=== PATIENT | male | born 1970 | race Caucasian/White ===

== ENCOUNTER 2021-03-19 08:17 | Outpatient (REF) | payer OTHER, SELFPAY ==
--- NOTE | ~2021-03-19 | XR_ITS ---
EXAMINATION: XR CHEST CLINICAL INFORMATION: Cough. COMPARISON: Chest radiograph dated 07/30/2017. TECHNIQUE: 2 views of the chest were obtained. FINDINGS: The lungs are clear. The cardiomediastinal silhouette is normal in size. There is no pleural effusion or pneumothorax. No acute osseous abnormality. XR/XR chest 2V IMPRESSION: No acute cardiopulmonary findings.
[2021-03-19 11:31] LABS: MANUAL DIFF FLAG NO
[2021-03-19 11:39] LABS: Basophils Percent Auto 0.3 % (0-2); Eosinophils Absolute Auto 0.3 X10*3/uL (0.0-0.4); Eosinophils Percent Auto 3.1 % (0-4); Hematocrit 47.8 % (42-52); Imm Gran Abs Auto 0.04 X10*3/uL (0.00-0.03); Imm Gran Pct Auto 0.4 % (0.0-0.4); Lymphocytes Absolute Auto 2.2 X10*3/uL (1.2-4.9); Lymphocytes Percent Auto 24.2 % (20-40); Mean Corpuscular HGB Conc 33.5 g/dl (31.0-36.0); Mean Corpuscular Hemoglobin 29.4 pg (27.0-33.0); Mean Corpuscular Volume 87.9 fL (80-98); Mean Platelet Volume 10.4 fL (9.4-12.4); Monocytes Absolute Auto 0.8 X10*3/uL (0.1-1.2); Monocytes Percent Auto 8.9 % (2-11); Neutrophils Absolute Auto 5.6 X10*3/uL (2.0-8.3); Neutrophils Percent Auto 63.1 % (45-73); Platelet Count 325 X10*3/uL (160-400); Red Blood Count 5.44 X10*6/uL (4.60-5.80)
[2021-03-19 11:59] LABS: Alanine Aminotransferase 19 U/L (0-40); Albumin Level 4.6 g/dL (3.5-5.0); Alkaline Phosphatase 70 U/L (39-117); Anion Gap 16 (12-20); Aspartate Amino Transferase 15 U/L (5-37); Bilirubin Total 0.5 mg/dL (0.0-1.0); Blood Urea Nitrogen 15 mg/dL (9-16); Calcium 9.8 mg/dL (8.4-10.2); Carbon Dioxide 24 mmol/L (22-29); Chloride 107 mmol/L (96-108); Cholesterol 222 mg/dL; Estimated Glomerular Filt Rate > 60; Glucose Random 96 mg/dL (60-115); HDL Cholesterol 53 mg/dL; LDL Cholesterol Calculated 136 mg/dl; Potassium 4.7 mmol/L (3.3-5.1); Sodium 142 mmol/L (135-145); Total Protein 7.5 g/dL (6.5-8.0); Triglycerides 167 mg/dL
[2021-03-19 12:19] LABS: Free T4 (Free Thyroxine) 1.04 ng/dL (0.71-1.85); Thyroid Stimulating Hormone 0.71 uIU/mL (0.32-4.0)
[2021-03-19 12:26] LABS: Folate 13.1 ng/mL (> or = 4.0); Vitamin B12 668 pg/mL (200-900)
== END 2021-03-19 08:18 | disposition home or self-care (01) ==
LOC: HO.HMGCX 08:17
PROVIDERS: PCP Internal Medicine; Visit Provider Internal Medicine
DX: R05 Cough (principal); E78.00 Pure hypercholesterolemia, unspecified
CPT/HCPCS: 36415; 71046; 80053; 80061; 82607; 82746; 84439; 84443; 85025

== ENCOUNTER → 2021-04-27 15:18 | Outpatient (BNVA) | payer OTHER, SELFPAY | PROVIDERS: Visit Provider Urology | DX: A63.0 Anogenital (venereal) warts (principal) | CPT/HCPCS: 99202 ==

== ENCOUNTER 2021-05-18 15:57 | Outpatient (REF) | payer OTHER, SELFPAY ==
--- NOTE | 2021-05-18 | PFT_ITS ---
Forced vital capacity moderately reduced. FEV1, UHB40-75, and MVV are markedly reduced. Post bronchodilator therapy, there is a significant improvement in FEV1 and FHM32-36. Total lung capacity is normal. Residual volume is markedly increased. Diffusion capacity normal. CONCLUSION: Severe obstructive airway disorder. Partial reversibility after bronchodilator therapy indicating asthma/COPD overlap syndrome. There is evidence of air trapping. The diffusion capacity is normal. MD CAILIN Anderson/MODL / [id number]
== END 2021-05-18 15:58 | disposition home or self-care (01) ==
LOC: HO.RESP 15:57
PROVIDERS: PCP Internal Medicine; Visit Provider Internal Medicine
DX: Z72.0 Tobacco use (principal)
CPT/HCPCS: 94060; 94727; 94729

== ENCOUNTER 2021-06-18 13:56 | Day surgery (SDC) | payer OTHER, SELFPAY ==
[2021-06-12 15:10] VITALS: BMI 25.1
[2021-06-18 14:26] VITALS: BP 128/89; PULSE 79; RESP 16; TEMP 37.1; O2SAT 96
[2021-06-18] MEDS: Lactated Ringers 1,000 ML 50 ML IVCONT (14:39)
[2021-06-18] MEDS: levoFLOXacin 500 MG TABLET PO (14:39)
--- NOTE | 2021-06-18 15:24 | HO.ANESPROP2 ---
HPI - Anesthesia Eval Consult details Narrative: 50 yo male patient for fulguration of scrotal condylomata PMFSH Active Problems Active Problems: All Active Problems (Updated 06/12/21 @ 15:08 by Debby Gonzalez RN) Tobacco abuse (Acute) Tinea pedis, left (Acute) Testicular lesion (Acute) Cough (Acute) Annual physical exam (Acute) Hypercholesterolemia (Acute) Colon cancer screening (Acute) Genital warts (Acute) Asthma. Only just recently prescribed an inhaler. Did not use today Past Medical History Medical History (Updated 06/19/21 @ 18:40 by Hilda Rincon MD) Asthma History of ETOH abuse Smoker Toe fracture, right Family History Family History Father Suicide Mother Lung cancer Son Substance abuse Daughter No problems noted. Maternal Grandmother Lung cancer Paternal Grandmother Lung cancer Maternal Grandfather Colon cancer Family history of problems with anesthesia: No Surgical History Surgical History S/P correction of deviated nasal septum History of Problems with Anesthesia: No Social History Social History (Updated 06/18/21 @ 16:54 by Maricruz Sims MD) Housing: Other Housing Other:: Sober living house Alcohol intake: former Patient Tobacco Use Status: Current everyday Tobacco user Tobacco use type: Cigarette Cigarette Packs Per Day: 1 Cigarettes Per Day: 20.0 Years Smoked: 30 e-Cigarette/Vaping Use: Never Used Second Hand Smoke Exposure: Yes Current occupational status: unemployed Meds Allergies Allergy/AdvReac Type Severity Reaction Status Date / Time No Known Allergies Allergy Verified 07/12/21 10:14 [No Known Allergies*] Active Medications: Current Medications Lactated Ringer's (Lr) 1,000 mls @ 50 mls/hr IVCONT .Q20H RITA Last Admin: 06/18/21 14:39 Dose: 50 mls/hr Documented by: Exam Exam Date and Time: June 18, 2021 1524 Height,Weight and Vital Signs: Height 5 ft 10 in Weight 79.379 kg Last Vital Signs Temp 98.8 F 06/18/21 14:26 Pulse 79 06/18/21 14:26 Resp 16 06/18/21 14:26 BP 128/89 06/18/21 14:26 Pulse Ox 96 06/18/21 14:26 Airway Mallampati Class: II TM Dist: >3cm Neck ROM: Full Heart: RRR Lungs: Bilateral audible wheezes Other: Lungs CTAB post albuterol treatment Assessment and Plan Assessment Anesthesia Assessment: Anesthesia Plan Discussed and Chart Reviewed Final Anesthetic Review Family History of Problems with Anesthesia: No History of Problems with Anesthesia: No NPO: Yes ASA Class: II Final Preanesthetic Review: No Changes in Pt Med Stat, Meds/Allgs Chart Reviewed, Consent Obtained/Reviewed and Anes Risks/Benef Reviewed Patient Risk: Low Procedure Risk: Low Assessment/Block/Sedation in SS: Assess/Block/Sedation-SS Anesthetic Plan Anesthetic Plan: GA Disposition: Standard PACU
[2021-06-18] MEDS: Albuterol Sulfate (0.083%) 2.5 MG/3 ML VIAL.NEB INHALE (16:07)
--- NOTE | 2021-06-18 16:52 | MHC.SHP ---
Pre-Procedural Eval Section A Date of Service: 06/18/21 Section B Chief Complaint: anogenital warts Details of Present Illness: Penile condyloma here for CO2 laser Relevant Family History (Specify if Yes): No Relevant Social History: None Present Medications: see Short Stay Collaborative assessment Medical History: No relevant PMH History of Previous Operations: Relevant previous surgery/procedure and date(s) Allergies: Allergies Allergy/AdvReac Type Severity Reaction Status Date / Time No Known Allergies Allergy Verified 06/12/21 15:09 [No Known Allergies*] Review of Systems Sugical H&P ROS: Negative: Constitution, Cardiovascular, Respiratory, Neurological, Psychiatric, Hem-Onc, Allergic/Immunologic, Gastrointestinal, Genitourinary, Musculoskeletal, Integumentary, Endocrine and Eyes/Ears/Nose/Throat Exam Surgical H&P Exam: Normal: HEENT, Normal: Heart, Normal: Lungs, Normal: Extremities, Normal: Abdomen, Normal: Skin and Normal: Neurological Plan Diagnosis/Plan: Unchanged (CO2 laser penile condyloma) I have reviewed the history and physical and performed a pertinent physical examination on my patient. No changes have occurred unless specified.
[2021-06-18 17:55] VITALS: BP 129/93; PULSE 73; RESP 17; TEMP 36.3; O2SAT 97
[2021-06-18 18:00] VITALS: BP 129/88; PULSE 73; RESP 16; O2SAT 94
[2021-06-18 18:05] VITALS: BP 125/82; PULSE 72; RESP 16; O2SAT 95
[2021-06-18 18:10] VITALS: BP 124/84; PULSE 62; RESP 18; TEMP 36.8; O2SAT 95
[2021-06-18 18:25] VITALS: BP 129/84; PULSE 66; RESP 18; O2SAT 95
--- NOTE | 2021-06-19 10:22 | W.PM.OPN ---
Operative Note Operative Note Date of Service: 06/18/21 Narrative: PreOperative Diagnosis: Penile condyloma Post Operative Diagnosis: Penile condyloma Procedure: CO2 laser of 4 cm penile condyloma lesion on left base shaft penis Surgeon: Dr Yan Ball Anesthesia: General Indications for procedure: Left based shaft penis 4 cm penile condyloma lesion. Too big to respond to topical cryotherapy in office. Recommendation CO2 laser ablation under anesthetic setting. He understands main adverse effects would be scarring. Procedure: After informed consent was verified the patient was brought to the operating room and placed in a supine position. Anesthesia was administered per protocol. Using a CO2 laser with power settings between 4 and 6 w the condyloma was destroyed. The lesion was briskly wiped in order to remove cauterized tissue before repeat administration of CO2 laser was performed. This was repeated until taken down to the cutaneous level. Minimal bleeding was encountered. Bacitracin was applied at completion. Two small lesions in suprapubic area were also addressed each only 2-3 mm Recommendation to apply Aquaphor thin coat b.i.d. for 14 days to maximize healing. Patient understands recurrence is possible. Pathology: None Drains: None
== END 2021-06-18 18:32 | disposition home or self-care (01) ==
PROVIDERS: PCP Internal Medicine; Visit Provider Urology
PROC: (CPT 54057; principal; 2021-06-18 15:30)
DX: A63.0 Anogenital (venereal) warts (principal); J45.909 Unspecified asthma, uncomplicated; F17.210 Nicotine dependence, cigarettes, uncomplicated
CPT/HCPCS: 54057; J1100; J2405; J3010

== ENCOUNTER 2021-11-30 09:57 | Day surgery (SDC) | payer OTHER, SELFPAY ==
[2021-11-26 11:32] VITALS: BMI 25.8
--- NOTE | 2021-11-29 10:07 | P.CONAN_ITS ---
Documented by User: Val Duong NP 11/29/21 10:09 HPI - Anesthesia Eval Consult details Narrative: 51yo M for Colonoscopy hx of ETOH, none now per record PMFSH Active Problems Active Problems: All Active Problems (Updated 11/26/21 @ 11:29 by Becca Victor, RN) Tobacco abuse (Acute) Tinea pedis, left (Acute) Testicular lesion (Acute) Cough (Acute) Annual physical exam (Acute) Hypercholesterolemia (Acute) Colon cancer screening (Acute) Genital warts (Acute) Condyloma acuminatum of penis (Acute) Alcohol abuse (Acute) COPD (chronic obstructive pulmonary disease) (Acute) Generalized anxiety disorder (Acute) Deformity of right foot (Acute) Past Medical History Medical History Asthma COVID-19 vaccine series completed History of ETOH abuse Smoker Toe fracture, right Family History Family History Father Suicide Mother Lung cancer Son Substance abuse Daughter No problems noted. Maternal Grandmother Lung cancer Paternal Grandmother Lung cancer Maternal Grandfather Colon cancer Family history of problems with anesthesia: No Surgical History Surgical History Hx of surgical procedure S/P correction of deviated nasal septum History of Problems with Anesthesia: No Social History Social History Housing: Other Housing Other:: Sober living house Alcohol intake: former Patient Tobacco Use Status: Current everyday Tobacco user Tobacco use type: Cigarette Cigarette Packs Per Day: 1 Cigarettes Per Day: 30 Years Smoked: 31 e-Cigarette/Vaping Use: Never Used Second Hand Smoke Exposure: Yes Advance Directives Information Provided: Yes (brochure mailed) Advance Directives on File: No Current occupational status: unemployed Meds Allergies Allergy/AdvReac Type Severity Reaction Status Date / Time No Known Allergies Allergy Verified 09/24/21 09:35 [No Known Allergies*] Exam Exam Date and Time: November 29, 2021 1007 Height,Weight and Vital Signs: Height 5 ft 10 in Weight 81.647 kg Pertinent Lab Results Pertinent Lab Results: Laboratory Tests 03/19/21 03/19/21 08:24 08:24 WBC 9.0 Hgb 16.0 Hct 47.8 Plt Count 325 Sodium 142 Potassium 4.7 Chloride 107 Carbon Dioxide 24 BUN 15 Creatinine 0.86 Assessment and Plan Assessment Anesthesia Assessment: Chart Reviewed Final Anesthetic Review Family History of Problems with Anesthesia: No History of Problems with Anesthesia: No Documented by User: Maricruz Sims MD 11/30/21 11:11 [facility] Active Problems Active Problems: All Active Problems (Updated 11/26/21 @ 11:29 by Becca Victor RN) Tobacco abuse. Last cigarette 9am 11/30/21 Tinea pedis, left (Acute) Testicular lesion (Acute) Cough (Acute) Annual physical exam (Acute) Hypercholesterolemia (Acute) Colon cancer screening (Acute) Genital warts (Acute) Condyloma acuminatum of penis (Acute) Alcohol abuse (Acute) COPD (chronic obstructive pulmonary disease) (Acute) Generalized anxiety disorder (Acute) Deformity of right foot (Acute) Past Medical History Medical History Asthma COVID-19 vaccine series completed History of ETOH abuse Smoker Toe fracture, right Family History Family History Father Suicide Mother Lung cancer Son Substance abuse Daughter No problems noted. Maternal Grandmother Lung cancer Paternal Grandmother Lung cancer Maternal Grandfather Colon cancer Surgical History Surgical History Hx of surgical procedure S/P correction of deviated nasal septum Social History Social History Housing: Other Housing Other:: Sober living house Alcohol intake: former Patient Tobacco Use Status: Current everyday Tobacco user Tobacco use type: Cigarette Cigarette Packs Per Day: 1 Cigarettes Per Day: 30 Years Smoked: 31 e-Cigarette/Vaping Use: Never Used Second Hand Smoke Exposure: Yes Advance Directives Information Provided: Yes (brochure mailed) Advance Directives on File: No Current occupational status: unemployed Meds Allergies Allergy/AdvReac Type Severity Reaction Status Date / Time No Known Allergies Allergy Verified 09/24/21 09:35 [No Known Allergies*] Exam Height,Weight and Vital Signs: Height 5 ft 10 in Weight 81.647 kg Vital Signs Temp Pulse Resp BP Pulse Ox 11/30/21 10:27 53 18 11/30/21 10:05 98 F 57 20 113/76 98 Airway Mallampati Class: II TM Dist: >3cm Neck ROM: Full Heart: RRR Lungs: Occasional wheeze post albuterol treatment Assessment and Plan Assessment Anesthesia Assessment: Anesthesia Plan Discussed Final Anesthetic Review NPO: Yes ASA Class: II Final Preanesthetic Review: No Changes in Pt Med Stat, Meds/Allgs Chart Reviewed, Consent Obtained/Reviewed and Anes Risks/Benef Reviewed Patient Risk: Low Procedure Risk: Low Assessment/Block/Sedation in SS: Assess/Block/Sedation-SS Anesthetic Plan Anesthetic Plan: MAC: Disposition: Standard PACU
[2021-11-30 10:05] VITALS: BP 113/76; PULSE 57; RESP 20; TEMP 36.6; O2SAT 98
[2021-11-30] MEDS: Lactated Ringers 1,000 ML 100 ML IVCONT (10:17)
[2021-11-30] MEDS: Albuterol Sulfate (0.083%) 2.5 MG/3 ML VIAL.NEB INHALE (10:26)
[2021-11-30 10:27] VITALS: PULSE 53; RESP 18; O2SAT 96
--- NOTE | 2021-11-30 10:35 | PC.NURSE ---
pt received resp tx ls less wheezing noted resp easy and reg pwd smoker cough noted nad
--- NOTE | 2021-11-30 10:49 | MHC.SHP ---
Pre-Procedural Eval Section A Date of Service: 11/30/21 Section B Chief Complaint: screening,hx of colonic polyps Details of Present Illness: screening see h and p no changes Relevant Family History (Specify if Yes): No Relevant Social History: None Present Medications: see Short Stay Collaborative assessment Medical History: No relevant PMH History of Previous Operations: No relevant previous surgery Allergies: Allergies Allergy/AdvReac Type Severity Reaction Status Date / Time No Known Allergies Allergy Verified 09/24/21 09:35 [No Known Allergies*] Review of Systems Sugical H&P ROS: Negative: Constitution, Cardiovascular, Respiratory, Neurological, Psychiatric, Hem-Onc, Allergic/Immunologic, Gastrointestinal, Genitourinary, Musculoskeletal, Integumentary, Endocrine and Eyes/Ears/Nose/Throat Exam Surgical H&P Exam: Normal: HEENT, Normal: Heart, Normal: Lungs, Normal: Extremities, Normal: Abdomen, Normal: Skin and Normal: Neurological Plan Diagnosis/Plan: Unchanged I have reviewed the history and physical and performed a pertinent physical examination on my patient. No changes have occurred unless specified.
[2021-11-30 11:20] VITALS: BP 95/51; PULSE 57; RESP 16; TEMP 36.4; O2SAT 95
--- NOTE | 2021-11-30 11:22 | PM.OP ---
Brief Operative Note Date of Service: 11/30/21 Pre-op diagnosis: screening Post-op diagnosis: same (colon polyp) Surgeon: Pavel Churchill Anesthesia: MAC Was an Tax Senior Associate used for this Procedure?: No Estimated blood loss (mL): 2 Pathology: other (polyp x1) Condition: stable Disposition: PACU
[2021-11-30 11:35] VITALS: BP 109/75; PULSE 51; RESP 16; TEMP 36.3; O2SAT 96
--- NOTE | 2021-11-30 11:45 | OP_ITS ---
SURGEON: Pavel Churchill MD INDICATIONS: Colon cancer screening. PREOPERATIVE DIAGNOSIS: POSTOPERATIVE DIAGNOSIS: PROCEDURE PERFORMED: Colonoscopy of the terminal ileum with biopsy. ESTIMATED BLOOD LOSS: COMPLICATIONS: ANESTHESIA: ASSISTANTS: SPECIMENS: MEDICATIONS: Monitored anesthesia care. DESCRIPTION OF PROCEDURE: History and physical were performed. The risks and benefits of the procedure were explained to the patient. An informed consent was obtained. The patient was placed in the left lateral decubitus position. A digital rectal exam was performed and was found to be normal. The Olympus pediatric video colonoscope was introduced into the rectum and advanced to the cecum without difficulty. The cecum was identified by transillumination, palpation, and identification of ileocecal valve. Examination was performed. The scope was removed. He tolerated the procedure well and returned to recovery area in stable condition. FINDINGS: The terminal ileum was examined and appeared normal. The visualized colonic mucosa was within normal limits without evidence of masses or ulcers. There was no evidence of colitis at 60 cm from the anal verge, it was a less than 5 mm sessile polyp, which was removed with biopsy forceps. No other polyps were identified. Retroflexed examination showed small internal hemorrhoids. The quality of the prep was good. IMPRESSION: Colon polyp. RECOMMENDATION: Follow up the biopsy results. MD ASIM Banerjee/CANDACEL / [id number]
== END 2021-11-30 12:15 | disposition home or self-care (01) ==
PROVIDERS: PCP Internal Medicine; Visit Provider Internal Medicine Gastroenterology
PROC: 0DJD8ZZ Inspection of Lower Intestinal Tract, Via Natural or Artificial Opening Endoscopic (ICD-10-PCS; CPT 45378; principal; 2021-11-30 10:50)
DX: Z12.11 Encounter for screening for malignant neoplasm of colon (principal); Z83.71 Family history of colonic polyps; Z80.0 Family history of malignant neoplasm of digestive organs; D12.4 Benign neoplasm of descending colon; K64.8 Other hemorrhoids; J45.909 Unspecified asthma, uncomplicated; E78.00 Pure hypercholesterolemia, unspecified; Z79.51 Long term (current) use of inhaled steroids; Z79.899 Other long term (current) drug therapy; F10.11 Alcohol abuse, in remission; F17.210 Nicotine dependence, cigarettes, uncomplicated; Z98.890 Other specified postprocedural states
CPT/HCPCS: 45380; 88305; 94640

== ENCOUNTER → 2021-12-18 09:00 | Outpatient (BNVA) | payer OTHER, SELFPAY | PROVIDERS: PCP Internal Medicine; Visit Provider Urology | DX: B49 Unspecified mycosis (principal); A63.0 Anogenital (venereal) warts | CPT/HCPCS: 99212 ==

== ENCOUNTER 2024-04-08 11:04 | Outpatient (AMB) | payer OTHER, SELFPAY ==
--- NOTE | 2024-04-08 11:12 | MHC.PC.OV ---
Vital Signs 04/08/24 11:14 Height 5 ft 10 in Weight 162 lb BMI 23.2 BP 116/70 Blood Pressure Location Lt brachial Position Sitting Pulse 63 Pulse Source Pulse Oximeter Pulse Oximetry (%) 97 Oxygen Delivery Method Room Air Intake Visit Reasons: Levy Frank 04/03 RT shoulder hurts from fall Allergies No Known Allergies [No Known Allergies*] Allergy (Verified 04/08/24 11:15) Medication List - Last Reconciled 04/08/24 by Shaylee Munoz PA-C albuterol sulfate 90 mcg/actuation (ProAir HFA) 2 puffs inhalation Q6H PRN clotrimazole 1% 1 appl topical BID 4 weeks disulfiram 500 mg (2 x 250 mg) PO DAILY fluticasone propionate 110 mcg/actuation (Flovent HFA) 2 puffs inhalation BID nicotine (polacrilex) (Nicorette) 4 mg buccal Q2H Tobacco use date assessed: 04/08/24 HPI Levy Frank 04/03 RT shoulder hurts from fall HPI Details 53-year-old male with past medical history of generalized anxiety disorder, alcohol abuse, COPD, hypercholesterolemia last seen by Dr. Rincon coming in for hospital follow up.?In review of the notes, patient was seen in [facility] ED 04/03/2024 after a fall from a ladder. CT chest/abdomen and T-spine showed no acute injury, CT C-spine was also negative, CT of the head was negative, shoulder XR negative for dislocation or fracture.?Incidentally on chest CT lymphadenopathy was noted on the right side and radiology did recommend repeat CT scan in 3 months.?Patient was discharged home in diagnosed with contusion of the right shoulder. Patient tells us today he continues to have right shoulder pain and extremely limited mobility. He has been working on gentle stretching of the arm but this is limited due to pain. He also mentions body aches all over since the fall and muscle inflammation in his legs most notably on the lateral aspect of his right lower leg. He has no pain with ambulation and his primary concern is his right shoulder which has been keeping him up at night. [facility] Medical History COVID-19 vaccine series completed Smoker History of ETOH abuse Colon cancer screening Cough Asthma Toe fracture, right Surgical History Hx of surgical procedure S/P correction of deviated nasal septum Family History Father Suicide Mother Lung cancer Son Substance abuse Daughter No problems noted. Maternal Grandmother Lung cancer Paternal Grandmother Lung cancer Maternal Grandfather Colon cancer Social History Housing: Other Housing Other:: Sober living house Alcohol intake: former Patient Tobacco Use Status: Current everyday Tobacco user Tobacco use type: Cigarette Cigarette Packs Per Day: 1 Cigarettes Per Day: 30 Years Smoked: 31 e-Cigarette/Vaping Use: Never Used Second Hand Smoke Exposure: Yes Current occupational status: unemployed Cognitive needs: No Hearing needs: No Vision needs: No Questionnaire Thrive Questionnaire Date Thrive assessed: 04/18/22 AUDIT C Alcohol Use Questionnaire (AUDIT-C) 1. How often do you have a drink containing alcohol?: Never 3. How often do you have six or more drinks on one occasion?: Never Total Score: 0 NEO-7 AMB Questionnaire NEO-7 Date NEO - 7 assessed: 04/18/22 Source: Developed by Drs. Gunner Bowen, Araceli Haider, Jorge Barillas and colleagues, with an educational faby from [employer]. Review of Systems Const Reports body aches, Denies fever(s) and Denies headache(s) Eyes Reports no additional complaints ENT Denies dizziness and Denies headache(s) Card Denies chest pain, Denies lightheadedness and Denies dyspnea Resp Denies dyspnea GI Denies abdominal pain Reports no additional complaints Musc Details: right shoulder pain, left ankle pain Denies abnormal gait Skin/Breast Reports system reviewed and no additional complaints, except as documented Neuro Denies abnormal gait, Denies dizziness and Denies headache(s) Psych Reports no additional complaints Physical exam (Primary Care) Tobacco/Smoking Status: Tobacco use Status Tobacco use date assessed 04/18/22 04/06/24 14:14 Patient Tobacco Use Status Current everyday Tobacco 04/06/24 14:14 Tobacco use type Cigarette 04/06/24 14:14 e-Cigarette/Vaping Use Never Used 04/06/24 14:14 Are you ready to quit: No Tobacco cessation counseling provided: Yes Items discussed: Nicotine replacement Relapse Prevention: discussed the importance of a supportive environment CPT code: Less than 3 minutes Thrive Assessment: Date of Thrive Assessment Date Thrive assessed 04/18/22 04/06/24 14:14 Const General: cooperative, healthy appearing, comfortable and no acute distress Orientation/consciousness: patient oriented x3 HENMT Head: Yes normocephalic Ears: hearing grossly normal bilaterally General nose exam: Normal external nose present Eyes General: appearance normal, both eyes and all related structures Conjunctivae: conjunctivae normal Neck Neck: Yes full ROM and Yes no lymphadenopathy Resp Effort & Inspection: normal respiratory effort Auscultation: clear to auscultation bilaterally, no crackles, no rales, no rhonchi and no wheezes Cardio Rate: regular rate Rhythm: regular rhythm Skin General skin exam: no rashes or lesions noted Neuro General: patient oriented x3 Gait exam (Neuro): Normal gait present Extrem Other: shoulder mobility exam very limited due to pain. pain to palpation over anterior aspect of the shoulder. pulses and sensation intact in bilateral upper extremities General: Yes normal to inspection, Yes full ROM and No edema Psych Affect: normal affect Attitude: cooperative Insight: Good insight present (Psych) Judgement: Good judgement present (Psych) Assessment and Plan Assessment & Plan (1) Right shoulder pain: Code(s): M25.511 - Pain in right shoulder Plan: Patient continues to have right shoulder pain since his injury. Shoulder x-ray was negative for any fracture or dislocation and showed good joint spaces. We will trial meloxicam daily for inflammation, lidocaine patches as needed for pain, and muscle relaxer to help with nighttime pain. 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 Also referred to physical therapy for range of motion exercises and advised patient to do gentle stretching to prevent stiffening of the shoulder. We will follow up in 3 months. Can consider orthopedics referral if symptoms do not improve or worsen in that time. Plan This note was constructed using voice recognition software. While every effort has been made to ensure accuracy and rod mill tender, still areas may have been included sometimes these areas may affect the content or meeting of the given symptoms. Total time spent caring for the patient today was 30 minutes. This includes time spent before the visit reviewing the chart, time spent during the visit, and time spent after the visit and documentation. Orders: Orders PT Evaluation and Treatment Today M25.511 - Pain in right shoulder Referrals Lung Cancer Screening Referral Z87.891 - Personal history of nicotine dependence Medications: New cyclobenzaprine 5 mg PO BEDTIME PRN 20 tabs 0RF muscle spasm meloxicam 7.5 mg PO DAILY 20 tabs 0RF lidocaine 5% leave on most painful area for up to 12 hrs 1 patch topical DAILY 15 ea 0RF Coding Level of Care Code Est Pt Level 4 (70241) Diagnoses Right shoulder pain M25.511
[2024-04-08 11:14] VITALS: BP 116/70; PULSE 63; O2SAT 97; BMI 23.2
== END 2024-04-08 11:57 | disposition home or self-care (01) ==
PROVIDERS: PCP Internal Medicine
DX: M25.511 Pain in right shoulder (principal)
CPT/HCPCS: 99214

== ENCOUNTER 2024-06-11 08:00 | Outpatient (RCR) | payer OTHER, SELFPAY ==
--- NOTE | 2024-05-03 09:00 | MHC.PT.EP ---
[facility] [place] [facility] [place] [facility] [place] [facility] [address] Jerri Maxwell [address] [phone] F: [phone] F: [phone] F: [phone] F: [phone] Physical Therapy Plan of Care Date of Evaluation: 05/03/24 Date of Surgery: Diagnosis: R shoulder pain Assessment: 53 y/o RHD male referred to PT with R shoulder pain. Pt sustained injury after a fall from ladder from second story onto a deck. States he injured his L ankle/leg and landed on his bent R forearm resulting in arm jamming superior into shoulder and into jaw. (-) LOC, denies hitting head. He went to ED via ambulance 04/03/[address] chest/abdomen. c-spine, T-spine/head showed no acute injury, and shoulder XR negative for dislocation or fracture.? Since injury, reports increased pain and unable to reach overhead. Reports pain and difficulty with reaching overhead, reaching into back pocket, sleeping, lifting, carrying, and manual work duties. Examination shows decreased shoulder P/AROM, painful arc, decreased R shoulder strength, TTP, and impaired postural awareness. S/s consistent with RTC tendinopathy and ? RTC tearing verse labral involvement. Educated pt on shoulder anatomy with model, precautions, HEP and use of ice/heat for pain and inflammation management. Frequency and Duration: The patient will be seen 2x/week for 5 weeks Short Term Goals: 3 weeks I with HEP Pt will be able to lift R arm to 90* with pain < 3/10 Boiler House Supervisor Goals: 5 weeks I with HEP and self management of sx Pt will be able to reach overhead with pain < 3.10 Pt will be able to reach behind back with pain < 3/10 Pt will be able to use drill and hammer with pain <3/10 Treatment Plan: Modalities to reduce pain, spasms and effusion. Manual therapy to restore motion and function. Therapeutic exercise to improve strength and flexibility. Neuromuscular re-education for posture and balance. Therapeutic activities to return to functional activities of daily living. Electronically signed by: Maricel Fang PT Please sign and return to therapist. Thank you for your referral.
--- NOTE | 2024-06-11 09:00 | MHC.PT.PR ---
[facility] [place] [facility] [place] [facility] [place] [facility] [address] Jerri Maxwell [address] [phone] F: [phone] F: [phone] F: [phone] F: [phone] Physical Therapy Progress Note Diagnosis: R shoulder pain Date of Surgery: Date of Evaluation: 05/03/24 Treatments to Date: 8 Cancellations to Date: 0 No Shows to Date: 0 Subjective: Feels about the same since starting PT, however he was just given muscle relaxer and able to sleep at night now. He also is starting to do less at work and trying not to use his R arm for work tasks now. Sees PCP 07/08 Pain Score and Location: 7 R shoulder Objective Measures: L shoulder ROM: flexion 70 (110) pain end range abd 45 (80) ER 18 (40) IR WNL Assessment: Recommend pt look into ortho referral as he has had minimal change thus far and may possibly benefit from MRI and further management. He has an appointment with PCP 07/08. PT Plan: Hold PT Frequency and Duration: The patient will be seen 2x/week for 5 weeks Treatment Plan: Therapeutic Exercise Dynamic Therapeutic Activities Neuromuscular Re-ed Manual Therapies Taping Home Exercise Program Patient Education Electrical Stimulation Hot or Cold Pack Hold PT at this time and recommend orthopedic consult Reviewed/ Agreed with Student Documentation: Therapist: Thank you once again for your referral.
--- NOTE | 2024-07-22 08:36 | MHC.PT.DC ---
[facility] [place] [facility] [place] Office [place] [facility] [address] Jerri Maxwell [address] [phone] F: [phone] F: [phone] F: [phone] F: [phone] Physical Therapy Discharge Report Diagnosis: R shoulder pain Date of Surgery: Date of Evaluation: 05/03/24 Date of Discharge: 07/22/24 Treatments to Date: 8 Cancellations to Date: 0 No Shows to Date: 0 Discharge Status: Recommend MD Follow-up Discharge Summary: Recommend pt look into ortho referral as he has had minimal change thus far and may possibly benefit from MRI and further management. He has an appointment with PCP 07/08. Electronically signed by: Maricel Fang PT Please sign and return to therapist. Thank you for your referral.
== END 2024-07-22 08:36 | disposition home or self-care (01) ==
LOC: HO.PTCHIC 08:00
PROVIDERS: PCP Internal Medicine
DX: M25.511 Pain in right shoulder (principal)
CPT/HCPCS: 97014; 97110; 97140; 97162